=== PATIENT | female | born 1965 | race Caucasian/White ===

== ENCOUNTER 2017-05-17 16:35 | Emergency (ER) | payer OTHER ==
[~2017-05-17] VITALS: Ht 162.6 cm; Wt 67.1 kg
[2017-05-17 16:40] VITALS: BP 162/100
--- NOTE | 2017-05-17 16:47 | ER Report ---
History and Physical Time Seen By MD: 16:47 HPI/ROS CHIEF COMPLAINT: Right knee pain HISTORY OF PRESENT ILLNESS: 52-year-old female patient presents to emergency room with complaint of right knee pain. Patient states that she is visiting from [place], was up skiing. She states while she was skiing that her body went left and her right leg went right. She states that she felt a popping in the right knee. She states that since then she's been having significant amounts of pain. She states she was able to bear weight on that leg. However versus she does have significant amounts of pain. She denies having any numbness tingling to her toes. Patient states that she has never had a previous injury to the right knee. REVIEW OF SYSTEMS: Respiratory: No cough, no dyspnea. Cardiovascular: No chest pain, no palpitations. Gastrointestinal: No vomiting, no abdominal pain. Musculoskeletal: As noted above Allergies: Coded Allergies: No Known Drug Allergies (Unverified , 05/17/17) Home Meds Active Scripts Hydrocodone Bit/Acetaminophen (HYDROCODON-ACETAMINOPHEN 5-325) 1 Each Tablet, 1 EACH PO Q4-6H Y for PAIN, #12 TAB Prov:MARIA DEL CARMEN JAYSSE EPIC AMBULATORY ANALYST 05/17/17 Past Medical/Surgical History Patient has a past medical history of right arm fracture. Patient has a surgical history of bunion removed from right foot. Reviewed Nurses Notes: Yes Constitutional Vital Sign - Last 24 Hours 05/17/17 16:40 Temp 97.6 Pulse 65 Resp 16 B/P (MAP) 162/100 Pulse Ox 95 O2 Delivery Room Air Physical Exam General Appearance: The patient is alert, has no immediate need for airway protection and no current signs of toxicity. Respiratory: Chest is non tender, lungs are clear to auscultation. Cardiac: regular rate and rhythm Gastrointestinal: Abdomen is soft and non tender, no masses, bowel sounds normal. Musculoskeletal: Neck: Neck is supple and non tender. Extremities have full range of motion and are non tender. Patient has tenderness to the medial aspect of the right knee, also has some tenderness along the lateral joint line. Patient had mild pain with varus maneuver, however she did have significant amounts of pain with the valgus maneuver. Skin: No rashes or lesions. DIFFERENTIAL DIAGNOSIS: After history and physical exam differential diagnosis was considered for knee fracture, contusion, sprain, MCL tear, meniscus tear. Medical Decision Making EKG/Imaging Imaging EXAMINATION: Right knee, 4 views 05/17/2017 4:55 PM HISTORY: Knee pain. Ski injury. COMPARISON: None FINDINGS: Mild spurring along the tibial spines and patellofemoral margins. No acute bony injury evident. No significant visible joint effusion. Potential small loose bodies along the back of the knee IMPRESSION: Mild degenerative spurring and potential loose bodies. No acute bony injury. Report Dictated By: Danilo Rush MD at 05/17/2017 6:00 PM Report E-Signed By: Danilo Rush MD at 05/17/2017 6:02 PM ED Course/Re-evaluation ED Course Patient is admitted to exam room, history and physical were obtained. Differential diagnoses were considered. X-rays done of the right knee. There were no acute fractures, there were some old bony fragments. I did discuss the findings with the patient. I believe that we are looking at a tear of the MCL as well as a meniscus injury. I discussed with patient that we are going to place her in a knee immobilizer. We will see how she does ambulate. She was able to get up and walk with a knee immobilizer without any difficulties. We will not send her home with crutches. We will give her a limited supply of pain medications in take as needed for pain. Otherwise she's taken ibuprofen for pain. She is to follow-up with orthopedics upon returning to [place]. She was given a copy of her x-rays. I discussed the plan with the patient and her and they verbalized understanding and agreement with plan. Decision to Disposition Date: May 17, 2017 Decision to Disposition Time: 18:34 Depart Departure Latest Vital Signs Vital Signs Date Time Temp Pulse Resp B/P (MAP) Pulse Ox O2 Delivery O2 Flow Rate FiO2 05/17/17 16:40 97.6 65 16 162/100 95 Room Air Impression: Primary Impression: Knee MCL sprain Condition: Improved Disposition: HOME OR SELF-CARE New Scripts Hydrocodone Bit/Acetaminophen (HYDROCODON-ACETAMINOPHEN 5-325) 1 Each Tablet 1 EACH PO Q4-6H Y for PAIN, #12 TAB Prov: CASEY JAY EPIC AMBULATORY ANALYST 05/17/17 Patient Instructions: Knee Sprain (ED) Additional Instructions: Limit activity by pain. Ice the knee 2-3 times a day for 10-15 minutes. Follow up with orthopedics when you return to [place], I do have some concerns about MCL tear and meniscus tear. Take Ibuprofen as needed for pain in addition to the pain medications. Follow up in the ER if condition worsens. Problem Qualifiers Primary Impression: Knee MCL sprain Encounter type: initial encounter Laterality: right Qualified Codes: S83.411A - Sprain of medial collateral ligament of right knee, initial encounter CASEY JAY May 17, 2017 16:47
--- NOTE | 2017-05-17 18:06 | RADIOLOGY IMAGING REPORT ---
FACILITY: [facility] - [place] PATIENT NAME: Stella Garcia : 1965 MR: [id number] V: [id number] EXAM DATE: ORDERING PHYSICIAN: CASEY JAY TECHNOLOGIST: Location: [facility] - [place] Patient: Stella Garcia : 1965 Visit/Account:[id number] Date of Sevice: 05/17/2017 EXAMINATION: Right knee, 4 views 05/17/2017 4:55 PM HISTORY: Knee pain. Ski injury. COMPARISON: None FINDINGS: Mild spurring along the tibial spines and patellofemoral margins. No acute bony injury umesh dent. No significant visible joint effusion. Potential small loose bodies along the back of the knee IMPRESSION: Mild degenerative spurring and potential loose bodies. No acute bony injury. Report Dictated By: Danilo Rush MD at 05/17/2017 6:00 PM Report E-Signed By: Danilo Rush MD at 05/17/2017 6:02 PM WSN:[id number]
[2017-05-17] MEDS ORDERED: HYDR-385 PO (18:31)
== END 2017-05-17 18:50 | disposition home or self-care (01) ==
LOC: ER 16:40
DX: S83.411A Sprain of medial collateral ligament of right knee, initial encounter (principal); Y93.23 Activity, snow (alpine) (downhill) skiing, snowboarding, sledding, tobogganing and snow tubing
CPT/HCPCS: 73564; 99283; L1830